=== PATIENT | male | born 1960 | race African-American/Black ===

== ENCOUNTER 2018-11-15 11:17 | Inpatient (IN) | payer OTHER ==
[2018-11-15 11:49] VITALS: BMI 18.2
--- NOTE | 2018-11-15 13:52 | HP ---
CIWA Score Nausea/Vomitin-No Nausea/No Vomiting Muscle Tremors: 2 Anxiety: 2 Agitation: 2 Paroxysmal Sweats: 2 Orientation: 0-Oriented Tacttile Disturbances: 2-Mild Itch/Numbness/Burn Auditory Disturbances: 0-None Visual Disturbances: 0-None Headache: 0-None Present CIWA-Ar Total Score: 10 - Admission Criteria OASAS Guidelines: Admission for Medically Managed Detox: Requires at least one of the followin. CIWA greater than 12 2. Seizures within the past 24 hours 3. Delirium tremens within the past 24 hours 4. Hallucinations within the past 24 hours 5. Acute intervention needed for co occurring medical disorder 6. Acute intervention needed for co occurring psychiatric disorder 7. Severe withdrawal that cannot be handled at a lower level of care (continued vomiting, continued diarrhea, abnormal vital signs) requiring intravenous medication and/or fluids 8. Patient presents the following: Acute intervention needed for co-occurring med or psych disorder Admission Criteria Met: Admission criteria met Admission ROS BHS - HPI Chief Complaint: withdrawal symptoms Allergies/Adverse Reactions: Allergies Allergy/AdvReac Type Severity Reaction Status Date / Time tomato [Tomato] Allergy Mild Hives Verified 11/15/18 11:36 No Known Drug Allergies Allergy Unknown Verified 11/15/18 11:36 History of Present Illness: 58 yo male with hx of alcohol and crack/ cocaine dependence is here seeking detox d/t withdrawal symptoms. Last detox period of sobriety one year, last detox 201. PMHX: immunocompromised, asthma. Psych: Denies. Denies hx of seizures or blackouts. Denies SI/HI Exam Limitations: No Limitations - Ebola screening Have you traveled outside of the country in the last 21 days: No (N) Have you had contact with anyone from an Ebola affected area: No Do you have a fever: No - Review of Systems Constitutional: Chills, Loss of Appetite, Changes in sleep, Unintentional Wgt. Loss EENT: reports: No Symptoms Reported Respiratory: reports: No Symptoms reported Cardiac: reports: No Symptoms Reported GI: reports: Poor Appetite, Poor Fluid Intake : reports: No Symptoms Reported Musculoskeletal: reports: Back Pain Integumentary: reports: Dryness, Pruritus Neuro: reports: No Symptoms reported Endocrine: reports: No Symptoms Reported Hematology: reports: See HPI Psychiatric: reports: No Sypmtoms Reported, Anxious Other Systems: Reviewed and Negative Patient History - Patient Medical History Hx Anemia: No Hx Asthma: Yes Hx Chronic Obstructive Pulmonary Disease (COPD): No Hx Cancer: No Hx Cardiac Disorders: No Hx Congestive Heart Failure: No Hx Hypertension: No Hx Hypercholesterolemia: No Hx Pacemaker: No HX Cerebrovascular Accident: No Hx Seizures: No Hx Dementia: No Hx Diabetes: No Hx Gastrointestinal Disorders: No Hx Liver Disease: No Hx Genitourinary Disorders: No Hx Sexually Transmitted Disorders: No Hx Renal Disease (ESRD): No Hx Thyroid Disease: No Hx Human Immunodeficiency Virus (HIV): Yes (on truvada,reyataz and norvir) Hx Hepatitis C: No Hx Depression: No Hx Suicide Attempt: No Hx Bipolar Disorder: No Hx Schizophrenia: No - Patient Surgical History Past Surgical History: No Hx Neurologic Surgery: No Hx Cataract Extraction: No Hx Cardiac Surgery: No Hx Lung Surgery: No Hx Breast Surgery: No Hx Breast Biopsy: No Hx Abdominal Surgery: No Hx Appendectomy: No Hx Cholecystectomy: No Hx Genitourinary Surgery: No Hx Section: No Hx Orthopedic Surgery: No Anesthesia Reaction: No - PPD History Previous Implant?: No PPD to be Administered?: Yes - Smoking Cessation Smoking history: Current every day smoker Have you smoked in the past 12 months: Yes Aproximately how many cigarettes per day: 5 Hx Chewing Tobacco Use: No Initiated information on smoking cessation: Yes 'Breaking Loose' booklet given: 11/15/18 - Substance & Tx. History Hx Alcohol Use: Yes Hx Substance Use: Yes Substance Use Type: Alcohol Hx Substance Use Treatment: Yes (Detox [facility] 2011) - Substances abused Alcohol Substance route: Oral Frequency: Daily Amount used: BEER- 4 x 24OZ CANS Age of first use: 19 Date of last use: 11/14/18 Crack Substance route: Smoking Frequency: 3-6 times per week Amount used: $30 Age of first use: 29 Date of last use: 11/12/18 Family Disease History - Family Disease History Family History: Denies Admission Physical Exam S - Vital Signs Vital Signs: Vital Signs - 24 hr 11/15/18 11:35 Temperature 98.5 F Pulse Rate 80 Respiratory 18 Rate Blood Pressure 118/74 - Physical General Appearance: Yes: Disheveled, Thin, Irritable, Anxious HEENTM: Yes: EOMI, Hearing grossly Normal, Normal ENT Inspection, Normocephalic , Normal Voice, GREY, Pharynx Normal, Tm's normal, Other (poor dentition, cheilitis) Respiratory: Yes: Chest Non-Tender, Lungs Clear, Normal Breath Sounds, No Respiratory Distress, No Accessory Muscle Use Neck: Yes: Within Normal Limits Breast: Yes: Breast Exam Deferred Cardiology: Yes: Regular Rhythm, Regular Rate Abdominal: Yes: Normal Bowel Sounds, Non Tender, Flat, Soft Genitourinary: Yes: Within Normal Limits Back: Yes: Normal Inspection Musculoskeletal: Yes: full range of Motion, Gait Steady, Pelvis Stable Extremities: Yes: Normal Capillary Refill, Normal Inspection, Normal Range of Motion Neurological: Yes: house director II-XII NML intact, Fully Oriented, Alert, Motor Strength 5/5 Integumentary: Yes: Normal Color, Warm, Diaphoresis Lymphatic: Yes: Within Normal Limits - Diagnostic (1) HIV (human immunodeficiency virus infection) Current Visit: Yes Status: Chronic (2) Alcohol dependence with uncomplicated withdrawal Current Visit: Yes Status: Acute (3) Nicotine dependence Current Visit: Yes Status: Acute (4) Cocaine dependence Current Visit: Yes Status: Acute (5) Asthma Current Visit: Yes Status: Acute Cleared for Admission [facility] - Detox or Rehab [facility] Level of Care: Medically Managed Detox Regimen/Protocol: Librium Breathalyzer - Breathalyzer Breathalyzer: 0 Urine Drug Screen - Test Device Lot number: [id number] Expiration date: 08/11/20 - Control Is test valid?: Yes - Results Drug screen NEGATIVE: No Urine drug screen results: THC-Marijuana, LJ-Cocaine, MOP-Opiates Inpatient Rehab Admission - Rehab Decision to Admit Inpatient rehab admission?: No
[2018-11-15] MEDS ORDERED: ACETAMINOPHEN 325 MG TABLET (FP) PO PRN ×2 (13:59)
[2018-11-15] MEDS ORDERED: METHOCARBAMOL 500 MG TABLET PO PRN (13:59)
[2018-11-15] MEDS ORDERED: MELATONIN 5 MG TABLETS PO PRN (13:59)
[2018-11-15] MEDS ORDERED: MAGNESIUM HYDROX 2400MG/30ML ORAL SUSPENSION 30 ML CUP PO PRN (13:59)
[2018-11-15] MEDS ORDERED: MENTHOL/PHENOL 1 EACH UD MM PRN (13:59)
[2018-11-15] MEDS ORDERED: hydrOXYzine PAMOATE 25 MG CAPSULE (FP) PO PRN (13:59)
[2018-11-15] MEDS ORDERED: MAGNESIUM CITRATE 300 ML BOTTLE PO PRN (13:59)
[2018-11-15] MEDS ORDERED: NICOTINE POLACRILEX 2 MG GUM BUC PRN (13:59)
[2018-11-15] MEDS ORDERED: MAG HYDROX/AL HYDROX/SIMETH 30 ML UNIT-DOSE CUP PO PRN (13:59)
[2018-11-15] MEDS ORDERED: ALBUTEROL SO4 8 GM HFA INHALER IH PRN (13:59)
[2018-11-15] MEDS ORDERED: chlordiazePOXIDE HCL 10 MG CAPSULE PO PRN (13:59)
[2018-11-15] MEDS ORDERED: BISMUTH SUBSALICYLATE 262 MG/15 ML BTL PO PRN (13:59)
[2018-11-15] MEDS: chlordiazePOXIDE HCL 25 MG CAPSULE PO SCH (22:09)
[2018-11-15] MEDS: THIAMINE HCL 100 MG TABLET (FP) PO SCH (22:09)
[2018-11-15 23:48] LABS: URINE APPEARANCE CLOUDY; URINE BILIRUBIN 1+ (NEGATIVE); URINE COLOR DK YELLOW; URINE GLUCOSE (UA) NEGATIVE (NEGATIVE); URINE KETONE 1+ (NEGATIVE)
[2018-11-15 23:49] LABS: URINE LEUK ESTERASE 1+ (NEGATIVE); URINE NITRITE NEGATIVE (NEGATIVE); URINE PROTEIN NEGATIVE (NEGATIVE); URINE UROBILINOGEN 4.0 E.U/dl mg/dL (0.2-1.0)
[2018-11-16 00:09] LABS: HYALINE CASTS 12 /lpf (0-8); URINE BACTERIA 9.3 /hpf (NEGATIVE); URINE RBC 3 /hpf (0-4); URINE WBC 3 /hpf (0-5)
[2018-11-16 01:52] LABS: URINE CRYSTALS 2+ /hpf
[2018-11-16] MEDS: chlordiazePOXIDE HCL 25 MG CAPSULE PO SCH ×2 (06:04→14:54)
--- NOTE | 2018-11-16 09:37 | EKG ---
Test Reason : Blood Pressure : / mmHG Vent. Rate : 067 BPM Atrial Rate : 067 BPM P-R Int : 136 ms QRS Dur : 082 ms QT Int : 412 ms P-R-T Axes : 070 038 057 degrees QTc Int : 435 ms NORMAL SINUS RHYTHM NORMAL ECG NO PREVIOUS ECGS AVAILABLE Confirmed by MARCIA QUESADA, FE ([id number]) on 11/16/2018 9:37:16 AM Referred By: Confirmed By:FE KENNEDY MD
[2018-11-16] MEDS: NICOTINE 14 MG/24 HOURS TOPICAL PATCH TD SCH (10:31)
[2018-11-16] MEDS: PRENATAL VITAMINS W/ FOLIC ACID TABLET (FP) PO SCH (10:31)
[2018-11-16 10:58] LABS: HEMATOCRIT 41.4 % (35.4-49); HEMOGLOBIN 13.6 GM/dL (11.7-16.9); MCH 34.1 pg (25.7-33.7); MCHC 32.8 g/dl (32.0-35.9); MEAN PLT VOLUME 8.1 fl (7.5-11.1); PLATELET COUNT 192 K/MM3 (134-434); RBC 3.98 M/mm3 (4.00-5.60); RDW 14.2 % (11.9-15.9); WHITE BLOOD COUNT 3.2 K/mm3 (4.0-10.0)
[2018-11-16 11:04] LABS: ALBUMIN 4.5 g/dl (3.4-5.0); BILIRUBIN,TOTAL 0.4 mg/dL (0.2-1); CALCIUM 10.7 mg/dL (8.5-10.1); POTASSIUM 3.8 mmol/L (3.5-5.1); TOT PROT 7.8 g/dl (6.4-8.2)
--- NOTE | 2018-11-16 13:39 | PN ---
[facility] CIWA - CIWA Score Nausea/Vomitin-No Nausea/No Vomiting Muscle Tremors: 3 Anxiety: 3 Agitation: 0-Normal Activity Paroxysmal Sweats: 3 Orientation: 0-Oriented Tacttile Disturbances: 1-Very Mild Itch/Numbness Auditory Disturbances: 0-None Visual Disturbances: 2-Mild Sensitivity Headache: 0-None Present CIWA-Ar Total Score: 12 S Progress Note (SOAP) Subjective: Sweating, Anxious, Tremors. Objective: PATIENT A & O X 3, OBSERVED AMBULATING ON UNIT UNASSISTED. IN NO ACUTE DISTRESS. 11/16/18 13:43 Vital Signs Temperature 98.6 F 11/16/18 09:29 Pulse Rate 89 11/16/18 09:29 Respiratory Rate 18 11/16/18 09:29 Blood Pressure 103/71 11/16/18 09:29 O2 Sat by Pulse Oximetry (%) Laboratory Tests 11/15/18 11/16/18 11/16/18 14:50 06:00 06:00 WBC 3.2 L RBC 3.98 L Hgb 13.6 Hct 41.4 MCV 104.0 H MCH 34.1 H MCHC 32.8 RDW 14.2 Plt Count 192 MPV 8.1 Sodium 137 Potassium 3.8 Chloride 101 Carbon Dioxide 29 Anion Gap 6 L BUN 9 Creatinine 1.0 Est GFR (CKD-EPI)AfAm 94.39 Est GFR (CKD-EPI)NonAf 81.44 Random Glucose 124 H Calcium 10.7 H Total Bilirubin 0.4 AST 31 ALT 32 Alkaline Phosphatase 81 Total Protein 7.8 Albumin 4.5 Urine Color Dk yellow Urine Appearance Cloudy Urine pH 6.0 Ur Specific Black 1.019 Urine Protein Negative Urine Glucose (UA) Negative Urine Ketones 1+ H Urine Blood Negative Urine Nitrite Negative Urine Bilirubin 1+ H Urine Urobilinogen 4.0 e.u/dl Ur Leukocyte Esterase 1+ H Urine WBC (Auto) 3 Urine RBC (Auto) 3 Urine Casts (Auto) 12 U Epithel Cells (Auto) 1.0 Urine Crystals (Auto) 2+ Urine Bacteria (Auto) 9.3 LABS NOTED. RPR RESULT PENDING. 11/16/18 13:45 Assessment: 11/16/18 13:45 WITHDRAWAL SYMPTOMS. HYPERCALCEMIA. Plan: CONTINUE DETOX. INCREASE DAILY PO FLUID / WATER INTAKE. REPEAT CALCIUM LEVEL TOMORROW FOR ELEVATED LEVEL NOTED ON DETOX ADMISSION. PATIENT REPORTS THAT HE IS CURRENTLY PRESCRIBED TIVICAY AND PREZCOBYX FOR TREATMENT OF HIV. PATIENT REPORTS FULL COMPLIANCE WITH MEDICATION AND THAT HE LAST TOOK AT HOME YESTERDAY, BUT THAT HE DID NOT BRING MEDICATIONS WITH HIM FOR DETOX ADMISSION. PER PHARMACIST AMAR AT PATIENT'S PHARMACY ([facility]), BOTH MEDICATIONS WERE LAST FILLED THERE ON 11/01/2018. PHARMACIST ALSO NOTES THAT PATIENT HAS BEEN FILLING BOTH MEDICATIONS CONSISTENTLY OVER THE LAST FEW MONTHS. AFTER CONSULTATION WITH [facility] PHARMACIST Trent FERRARO, BOTH MEDICATION WILL BE ORDERED FOR THIS DETOX ADMISSION.
[2018-11-16] MEDS: DOLUTEGRAVIR SODIUM 50 MG TABLET (NON-FORMULARY) PO SCH (15:47)
[2018-11-16] MEDS: DARUNAVIR 800 MG/COBICISTAT 150MG TABLET PO SCH (15:48)
[2018-11-16] MEDS: IBUPROFEN 400 MG TABLET (FP) PO PRN (20:10)
[2018-11-16] MEDS: chlordiazePOXIDE 5 MG CAPSULE PO SCH (22:23)
[2018-11-16] MEDS: THIAMINE HCL 100 MG TABLET (FP) PO SCH (22:24)
[2018-11-17] MEDS: chlordiazePOXIDE 5 MG CAPSULE PO SCH ×2 (06:03→14:14)
[2018-11-17] MEDS: PRENATAL VITAMINS W/ FOLIC ACID TABLET (FP) PO SCH (09:39)
[2018-11-17] MEDS: DOLUTEGRAVIR SODIUM 50 MG TABLET (NON-FORMULARY) PO SCH (09:40)
[2018-11-17] MEDS: IBUPROFEN 400 MG TABLET (FP) PO PRN (09:41)
[2018-11-17] MEDS: DARUNAVIR 800 MG/COBICISTAT 150MG TABLET PO SCH (09:41)
[2018-11-17] MEDS: NICOTINE 14 MG/24 HOURS TOPICAL PATCH TD SCH (09:41)
--- NOTE | 2018-11-17 11:51 | PN ---
S CIWA - CIWA Score Nausea/Vomitin Muscle Tremors: 2 Anxiety: 2 Agitation: 2 Paroxysmal Sweats: 1-Minimal Palms Moist Orientation: 0-Oriented Tacttile Disturbances: 1-Very Mild Itch/Numbness Auditory Disturbances: 1-Very Mild Visual Disturbances: 0-None Headache: 2-Mild CIWA-Ar Total Score: 13 BHS Progress Note (SOAP) Subjective: alert,irritable,anxious,interrupted sleep,tremor Objective: 11/17/18 11:49 Vital Signs Temperature 97.7 F 11/17/18 09:21 Pulse Rate 75 11/17/18 09:21 Respiratory Rate 18 11/17/18 09:21 Blood Pressure 106/65 11/17/18 09:21 O2 Sat by Pulse Oximetry (%) 11/17/18 11:49 Laboratory Results - last 24 hr 11/16/18 11/17/18 06:00 07:30 Calcium 10.1 RPR Titer Nonreactive Assessment: 11/17/18 11:50 withdrawal symptom Plan: continue detox,
[2018-11-17] MEDS ORDERED: chlordiazePOXIDE HCL 10 MG CAPSULE PO PRN (21:00)
[2018-11-17] MEDS: chlordiazePOXIDE HCL 10 MG CAPSULE PO SCH (21:49)
[2018-11-17] MEDS: THIAMINE HCL 100 MG TABLET (FP) PO SCH (21:49)
[2018-11-18] MEDS: chlordiazePOXIDE HCL 10 MG CAPSULE PO SCH ×3 (05:35→21:24)
[2018-11-18] MEDS: IBUPROFEN 400 MG TABLET (FP) PO PRN ×2 (05:35→15:57)
[2018-11-18] MEDS: DOLUTEGRAVIR SODIUM 50 MG TABLET (NON-FORMULARY) PO SCH (07:40)
[2018-11-18] MEDS: DARUNAVIR 800 MG/COBICISTAT 150MG TABLET PO SCH (07:40)
--- NOTE | 2018-11-18 09:52 | PN ---
S CIWA - CIWA Score Nausea/Vomitin Muscle Tremors: 2 Anxiety: 2 Agitation: 2 Paroxysmal Sweats: 1-Minimal Palms Moist Orientation: 0-Oriented Tacttile Disturbances: 0-None Auditory Disturbances: 1-Very Mild Visual Disturbances: 0-None Headache: 1-Very Mild CIWA-Ar Total Score: 11 S Progress Note (SOAP) Subjective: alert,irritable,anxious,interrupted sleep,pain in both shoulder Objective: 11/18/18 09:50 Vital Signs Temperature 97.9 F 11/18/18 09:17 Pulse Rate 74 11/18/18 09:17 Respiratory Rate 18 11/18/18 09:17 Blood Pressure 119/73 11/18/18 09:17 O2 Sat by Pulse Oximetry (%) Assessment: 11/18/18 09:50 withdrawal symptom Plan: continue detox,discharge in am,patient will follow up with medical provider at [place] for medical problem and orthopedist at [facility] after discharge
[2018-11-18] MEDS: PRENATAL VITAMINS W/ FOLIC ACID TABLET (FP) PO SCH (10:50)
[2018-11-18] MEDS: NICOTINE 14 MG/24 HOURS TOPICAL PATCH TD SCH (10:50)
[2018-11-18] MEDS: THIAMINE HCL 100 MG TABLET (FP) PO SCH (21:25)
[2018-11-19] MEDS: DARUNAVIR 800 MG/COBICISTAT 150MG TABLET PO SCH (08:39)
[2018-11-19] MEDS: DOLUTEGRAVIR SODIUM 50 MG TABLET (NON-FORMULARY) PO SCH (08:39)
[2018-11-19] MEDS: IBUPROFEN 400 MG TABLET (FP) PO PRN (08:40)
[2018-11-19 09:34] VITALS: BP 107/74; PULSE 81; TEMP 97.5
--- NOTE | 2018-11-19 09:39 | DS ---
[facility] Detox Discharge Summary Admission Date: 11/15/18 Discharge Date: 11/19/18 - History Present History: Alcohol Dependence - Physical Exam Results Vital Signs: Vital Signs Temperature 97.5 F L 11/19/18 09:33 Pulse Rate 81 11/19/18 09:33 Respiratory Rate 16 11/19/18 09:33 Blood Pressure 107/74 11/19/18 09:33 O2 Sat by Pulse Oximetry (%) - Treatment Hospital Course: Detox Protocol Followed, Detoxed Safely, Responded well, Discharged Condition Good, Rehab Referral Accepted - Medication Discharge Medications: Ambulatory Orders Albuterol Sulfate Inhaler - [Ventolin Hfa *Inhaler*] 2 inh IH Q4H PRN 04/26/12 Dolutegravir Sodium [Tivicay] 50 mg PO DAILY 11/15/18 Darunavir/Cobicistat [Prezcobix 800 mg-150 mg Tablet] 1 tablet PO DAILY - Diagnosis (1) Alcohol dependence with uncomplicated withdrawal Current Visit: Yes Status: Chronic (2) Asthma Current Visit: Yes Status: Chronic (3) Cocaine dependence Current Visit: Yes Status: Chronic Qualifiers: Substance use status: uncomplicated Qualified Code(s): F14.20 - Cocaine dependence, uncomplicated (4) Hypercalcemia Current Visit: Yes Status: Acute (5) Leukopenia Current Visit: Yes Status: Acute Qualifiers: Leukopenia type: unspecified Qualified Code(s): D72.819 - Decreased white blood cell count, unspecified (6) Nicotine dependence Current Visit: Yes Status: Chronic Qualifiers: Nicotine product type: cigarettes Substance use status: uncomplicated Qualified Code(s): F17.210 - Nicotine dependence, cigarettes, uncomplicated (7) HIV (human immunodeficiency virus infection) Current Visit: Yes Status: Chronic Qualifiers: HIV symptom status: unspecified Qualified Code(s): B20 - Human immunodeficiency virus [HIV] disease (8) Acquired immune deficiency syndrome (AIDS) Current Visit: Yes Status: Acute - AMA Did Patient Leave Against Medical Advice: No (pt referred to housing works.)
[2018-11-19] MEDS: PRENATAL VITAMINS W/ FOLIC ACID TABLET (FP) PO SCH (10:51)
[2018-11-19] MEDS: NICOTINE 14 MG/24 HOURS TOPICAL PATCH TD SCH (10:51)
== END 2018-11-19 09:58 | disposition home or self-care (01) | DRG 774 ==
LOC: YASAS 11:17 → Y6N 14:17
PROVIDERS: ADMIT Surgery; ATTEND Surgery
PROC: HZ2ZZZZ Detoxification Services for Substance Abuse Treatment (ICD-10-PCS; principal; 2018-11-15)
DX: F10.230 Alcohol dependence with withdrawal, uncomplicated (principal); F14.20 Cocaine dependence, uncomplicated; F17.210 Nicotine dependence, cigarettes, uncomplicated; B20 Human immunodeficiency virus [HIV] disease; D72.819 Decreased white blood cell count, unspecified; E83.52 Hypercalcemia; J45.909 Unspecified asthma, uncomplicated
CPT/HCPCS: 36415; 80053; 81003; 82310; 85027; 86593; 93005; 93010